=== PATIENT | female | born 1980 | race Hispanic/Latino ===

== ENCOUNTER 2017-01-02 02:19 | Emergency (ER) | payer MEDICAID ==
[2017-01-02 02:31] VITALS: BP 103/69
[2017-01-02 02:53] LABS: Basophils % (Auto) 0.3 % (0.0-1.8); Eosinophils % (Auto) 1.5 % (0.0-4.3); Hematocrit 39.2 % (30.3-42.9); Hemoglobin 12.9 gm/dl (10.1-14.3); Mean Corpuscular HGB Conc 33 % (30-34); Mean Corpuscular Hemoglobin 30 pg (28-32); Mean Corpuscular Volume 91 fl (79-97); Platelet Count 200 K/mm3 (140-440); Red Blood Count 4.29 M/mm3 (3.65-5.03); Red Cell Distribution Width 13.8 % (13.2-15.2); White Blood Count 8.1 K/mm3 (4.5-11.0)
[2017-01-02 03:04] LABS: Alanine Aminotransferase 11 units/L (7-56); Albumin/Globulin Ratio 1.4 %; Alkaline Phosphatase 79 units/L (35-129); Anion Gap 20 mmol/L; Blood Urea Nitrogen 12 mg/dL (7-17); Calcium 8.8 mg/dL (8.4-10.2); Carbon Dioxide 22 mmol/L (22-30); Chloride 102.6 mmol/L (98-107); Glucose 106 mg/dL (65-100); Lipase 30 units/L (13-60); Potassium 4.2 mmol/L (3.6-5.0); Sodium 140 mmol/L (137-145); Total Protein 6.8 g/dL (6.3-8.2)
== END 2017-01-02 02:28 | disposition left against medical advice (07) ==
LOC: ED 02:19
DX: H92.03 Otalgia, bilateral (principal); J02.9 Acute pharyngitis, unspecified; Z53.21 Procedure and treatment not carried out due to patient leaving prior to being seen by health care provider
CPT/HCPCS: 36415; 80053; 83690; 84703; 85025; 87116; 87430